=== PATIENT | female | born 1970 | race Caucasian/White ===

== ENCOUNTER 2019-02-26 07:30 | Emergency (ER) | payer OTHER ==
[~2019-02-26] VITALS: Wt 61.4 kg
[2019-02-26 07:38] VITALS: BP 127/59; PULSE 78; RESP 20
[2019-02-26] MEDS ORDERED: KETOROLAC 30 MG INJ IM STA (08:30)
[2019-02-26] MEDS ORDERED: IBUP-1542 PO (09:00)
--- NOTE | 2019-02-26 13:02 | ERD ---
ER Documentation Chief Complaint Chief Complaint l. hand, wrist pain s/p trauma yest HPI 48-year-old woman complains of left hand and wrist pain status post mechanical fall yesterday. She developed some mild swelling to the lateral left wrist and has pain but denies head or neck injury, no paresis or paresthesias, no chest pain or shortness of breath. Patient denies left shoulder or elbow pain. ROS All systems reviewed and are negative except as per history of present illness. Medications Home Meds Active Scripts Ibuprofen* (Motrin*) 600 Mg Tab, 600 MG PO Q8 PRN for PAIN AND/OR INFLAMMATION, #30 TAB Prov:SANDEEP KIM MD 02/26/19 Allergies Allergies: Coded Allergies: ibuprofen (Verified Allergy, Unknown, 02/26/19) PMhx/Soc Medical and Surgical Hx: pt denies Medical Hx, pt denies Surgical Hx Hx Alcohol Use: No Hx Substance Use: No Hx Tobacco Use: No Smoking Status: Never smoker Physical Exam Vitals Vital Signs Date Temp Pulse Resp B/P (MAP) Pulse Ox O2 O2 Flow FiO2 Time Delivery Rate 02/26/19 98.0 78 20 127/59 97 07:38 (81) Physical Exam Const: No acute distress, afebrile Resp: Clear to auscultation bilaterally Cardio: Regular rate and rhythm, no murmurs Abd: Soft, non tender, non distended. Normal bowel sounds Skin: No petechiae or rashes. Mild soft tissue contusion to the left hand, no ecchymosis or hematomas noted Back: No midline or flank tenderness Ext: Mild soft tissue contusion to the dorsal aspect of the left hand and left wrist, sensation to the median, ulnar, radial nerves are intact and equal bilaterally, no snuffbox tenderness to touch Neur: Awake and alert x3, no focal deficits or facial asymmetry Psych: Normal Mood and Affect Results 24 hrs Laboratory Tests Test 02/26/19 08:57 POC Beta HCG, Qualitative NEGATIVE Current Medications Medications Dose Sig/[place] Start Time Status Last (Trade) Ordered Route PRN Stop Time Admin Dose Reason Admin Ketorolac 30 mg ONCE STAT 02/26/19 DC 02/26/19 Tromethamine IM 08:30 09:16 (Toradol) 02/26/19 08:31 Procedures/MDM I administered Toradol 30 mg IM x1. X-ray left hand 3V interpreted by me: Scaphoid: Normal Bones: No fracture Joints: No dislocation Foreign body: None X-ray left wrist 3V Interpreted by me: Scaphoid: Normal Bones: No fracture Joints: No dislocation Foreign body: None I applied a soft splint to the left hand and wrist with all, elastic bandage for comfort and supportive measures. Splint Assessment: Neurovascularly intact post splint placement with good fit. Patient feels much better at this time, and vital signs are normal, symptoms have improved. I did give strict instructions to return to the ED if symptoms continue or worsen, patient will otherwise follow-up with primary care physician. Patient understood instructions and agreed to plan. Disclaimer: Inadvertent spelling and grammatical errors are likely due to EHR/dictation software use and do not reflect on the overall quality of patient care. Also, please note that the electronic time recorded on this note does not necessarily reflect the actual time of the patient encounter. Departure Diagnosis: Primary Impression: Contusion of soft tissue Additional Impression: Wrist sprain Encounter type: initial encounter Laterality: left Qualified Codes: S63.502A - Unspecified sprain of left wrist, initial encounter Ruled Out: Injury of hand Condition: Good Patient Instructions: Wrist Sprain Referrals: MURPHY CARVER MD, DAVID MD Feb 26, 2019 13:02
== END 2019-02-26 09:36 | disposition home or self-care (01) ==
LOC: FTE 07:30
DX: S63.502A Unspecified sprain of left wrist, initial encounter (principal); M79.81 Nontraumatic hematoma of soft tissue; W18.39XA Other fall on same level, initial encounter; Y92.9 Unspecified place or not applicable
CPT/HCPCS: 29125; 73110; 73130; 81025; J1885; 96372